=== PATIENT | male | born 1990 | race Caucasian/White ===

== ENCOUNTER 2020-11-30 22:01 | Emergency (ER) | payer OTHER ==
[~2020-11-30] VITALS: Ht 172.7 cm; Wt 68.0 kg
--- NOTE | 2020-11-30 23:14 | NUR ---
urine collected and sent to lab
--- NOTE | 2020-11-30 23:18 | NUR ---
TO ER BED 12 AMBULATORY C/O SI WITH PLAN TO CUT WRIST AND OD ON VITAMINS. DENIES HI PT AAOX4 NO ACUTE DISTRESS NOTED, RESP EVEN AND UNLABORED. PT CALM AND COOPERATIVE AT THIS TIME. PLACE PT ON HOSPITAL GOWN, ALL BELONGINGS REMOVED AND PLACED IN A LOCKED HOSPITAL LOCKER. 1:1 SITTER AT BESIDE FOR PT SAFETY.
--- NOTE | 2020-11-30 23:35 | NUR ---
RENAID SWABBED, SENT TO LAB.
[2020-11-30 23:45] LABS: BASOPHILS % (AUTO) 0.6 % (0.0-2.0); EOSINOPHILS % (AUTO) 1.6 % (0.0-6.0); HEMATOCRIT 44 % (39-51); HEMOGLOBIN 14.9 g/dL (13.5-17.5); LYMPHOCYTES # (AUTO) 2.2 /CMM (0.8-4.8); LYMPHOCYTES % (AUTO) 33.5 % (20.0-44.0); MEAN CORPUSCULAR HGB CONC 34 g/dl (31.0-36.0); MEAN CORPUSCULAR VOLUME 85 fL (80-96); MONOCYTES # (AUTO) 0.4 /CMM (0.1-1.30); MONOCYTES % (AUTO) 6.3 % (2.0-12.0); NEUTROPHILS # (AUTO) 3.8 /CMM (1.8-8.9); PLATELET COUNT (AUTO) 210 /CMM (150-450); RED BLOOD CELL COUNT(AUTO) 5.19 MIL/uL (4.5-6.0); WHITE BLOOD COUNT (AUTO) 6.6 K/uL (4.3-11.0)
[2020-11-30 23:48] LABS: BILIRUBIN,URINE NEGATIVE (NEGATIVE); COLOR,URINE YELLOW (YELLOW); LEUKOCYTE ESTERASE ,URINE NEGATIVE (NEGATIVE); NITRITE, URINE NEGATIVE (NEGATIVE); PROTEIN,URINE NEGATIVE (NEGATIVE); UGLUCOSE NEGATIVE (NEGATIVE); UROBILINOGEN,URINE 0.2 EU/dL (0.2)
[2020-11-30 23:59] LABS: CALCIUM, SERUM 9.2 mg/dL (8.5-10.1); CARBON DIOXIDE 27 mmol/L (21-32); CHLORIDE 106 mmol/L (98-107); CREATININE 1.1 mg/dL (0.6-1.3); GLUCOSE 129 mg/dL (74-106); POTASSIUM 3.4 mmol/L (3.5-5.1); SODIUM SERUM 143 mmol/L (136-145); UREA NITROGEN, BLOOD 16 mg/dL (7-18)
[2020-12-01 00:05] LABS: ALANINE AMINOTRANSFERASE 25 U/L (12-78); ALBUMIN 4.2 g/dL (3.4-5.0); ALKALINE PHOSPHATASE 70 U/L (46-116); ASPARTATE AMINOTRANSFERASE 17 U/L (15-37); BILIRUBIN,DIRECT 0.1 mg/dL (0.0-0.2); BILIRUBIN,TOTAL 0.4 mg/dL (0.2-1.0); TOTAL PROTEIN, SERUM 7.5 g/dL (6.4-8.2)
[2020-12-01 00:06] LABS: ACETAMINOPHEN 0 ug/ml (10-30); ALCOHOL, BLOOD < 3 mg/dL (0-0)
--- NOTE | 2020-12-01 00:16 | NUR ---
COVID IS NEGATIVE
--- NOTE | 2020-12-01 00:29 | NUR ---
FACESHEET AND CLINICAL FAXED TO [facility] FOR VOLUNTARY ADMISSION.
--- NOTE | 2020-12-01 02:17 | NUR ---
TRANSFER INFORMATION: PT ACCEPTED AT [facility] ACCEPTING MD TURNER PHONE NUMBER# PT WILL GO TO UNIT 2
[2020-12-01 02:34] VITALS: BP 105/61
--- NOTE | 2020-12-01 02:42 | NUR ---
CONFIRMATION #[id number] PER YULISSA VIA [facility].
--- NOTE | 2020-12-01 02:51 | NUR ---
REPORT GIVEN TO ELFEGO SAUNDERS FOR [facility]
--- NOTE | 2020-12-01 03:02 | NUR ---
[facility] ETA 20-30MIN ETA PER [id number].
--- NOTE | 2020-12-01 03:28 | NUR ---
REPORT GIVEN TO ANGELA EMT, PT TRANSFERED TO [facility].
== END 2020-12-01 03:39 ==
LOC: ER 22:05
DX: R45.851 Suicidal ideations (principal); Z20.822 Contact with and (suspected) exposure to COVID-19
CPT/HCPCS: 36415; 80048; 80076; 80299; 80307; 80320; 81003; 85025; 87426; 99285; C9803; G0480

== ENCOUNTER 2020-12-13 11:36 | Emergency (ER) | payer OTHER ==
[~2020-12-13] VITALS: Ht 172.7 cm; Wt 68.0 kg
--- NOTE | 2020-12-13 11:57 | NUR ---
BIBS FROM HOME TO ER BED 12. AAOX4. NOT IN RESP DISTRESS. AMBULATORY. CAME IN FOR SHAKINESS AND RESTLESSNESS. PT FEELS THAT HE IS HAVING ALCOHOL WITHDRAWAL. PT IS NOTED ANXIOUS. LAST DRINK WAS TUESDAY. WAS AT THE BEDSIDE FOR EVAL. ORDERS RECEIVED AND WILL BE CARRIED OUT. URINE COLLECTED FROM PT.
[2020-12-13] MEDS ORDERED: CHLORDIAZEPOXIDE HCL 25 MG CAPSULE PO ONE (12:00)
[2020-12-13] MEDS ORDERED: CHLORDIAZEPOXIDE HCL 25 MG CAPSULE ONE (12:01)
[2020-12-13 12:22] LABS: BASOPHILS % (AUTO) 0.4 % (0.0-2.0); EOSINOPHILS % (AUTO) 1.1 % (0.0-6.0); HEMATOCRIT 45 % (39-51); HEMOGLOBIN 14.6 g/dL (13.5-17.5); LYMPHOCYTES # (AUTO) 1.1 /CMM (0.8-4.8); MEAN CORPUSCULAR HGB CONC 33 g/dl (31.0-36.0); MEAN CORPUSCULAR VOLUME 87 fL (80-96); MONOCYTES # (AUTO) 0.3 /CMM (0.1-1.30); MONOCYTES % (AUTO) 6.1 % (2.0-12.0); NEUTROPHILS # (AUTO) 3.2 /CMM (1.8-8.9); NEUTROPHILS % (AUTO) 68.4 % (43.0-81.0); PLATELET COUNT (AUTO) 187 /CMM (150-450); RED BLOOD CELL COUNT(AUTO) 5.09 MIL/uL (4.5-6.0); WHITE BLOOD COUNT (AUTO) 4.6 K/uL (4.3-11.0)
[2020-12-13 12:25] LABS: BILIRUBIN,URINE Negative (NEGATIVE); COLOR,URINE YELLOW (YELLOW); LEUKOCYTE ESTERASE ,URINE Negative (NEGATIVE); NITRITE, URINE Negative (NEGATIVE); PH,URINE 6.5 (5.0-8.0); PROTEIN,URINE Negative (NEGATIVE); UGLUCOSE Negative (NEGATIVE)
[2020-12-13 12:36] LABS: ALANINE AMINOTRANSFERASE 28 U/L (12-78); ALBUMIN 4.2 g/dL (3.4-5.0); ALKALINE PHOSPHATASE 62 U/L (46-116); ASPARTATE AMINOTRANSFERASE 19 U/L (15-37); BILIRUBIN,DIRECT 0.1 mg/dL (0.0-0.2); BILIRUBIN,TOTAL 0.5 mg/dL (0.2-1.0); CALCIUM, SERUM 9.3 mg/dL (8.5-10.1); CARBON DIOXIDE 30 mmol/L (21-32); CHLORIDE 104 mmol/L (98-107); GLUCOSE 98 mg/dL (74-106); SODIUM SERUM 144 mmol/L (136-145); TOTAL PROTEIN, SERUM 7.3 g/dL (6.4-8.2); UREA NITROGEN, BLOOD 13 mg/dL (7-18)
[2020-12-13 12:53] LABS: ACETAMINOPHEN < 2 ug/ml (10-30); ALCOHOL, BLOOD < 3 mg/dL (0-0)
[2020-12-13 12:54] LABS: BACTERIA,URINE Rare /HPF (None Seen); RBC,URINE NONE SEEN /HPF (0-2); SQUAMOUS EPITHELIAL CELL,UR Few /HPF (None Seen); WBC,URINE NONE SEEN /HPF (0-3)
[2020-12-13 14:29] VITALS: BP 125/75
--- NOTE | 2020-12-13 14:29 | NUR ---
Pt verbalized that he is feeling better and got some rest. Patient discharged to home in stable condition. Written and verbal after care instructions given. Patient verbalizes understanding of instruction. Pt ambulatory with a steady gait
== END 2020-12-13 14:30 | disposition home or self-care (01) ==
LOC: ER 11:39
DX: F10.239 Alcohol dependence with withdrawal, unspecified (principal); I10 Essential (primary) hypertension; F32.9 Major depressive disorder, single episode, unspecified; Z88.8 Allergy status to other drugs, medicaments and biological substances; Y90.9 Presence of alcohol in blood, level not specified
CPT/HCPCS: 36415; 80048-TC; 80076-TC; 81001; 85025-TC; G0480